=== PATIENT | male | born 2005 | race Two or more races ===

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

== ENCOUNTER 2024-04-17 22:04 | Emergency (ER) | payer OTHER ==
[~2024-04-17] VITALS: Ht 170.2 cm; Wt 100.0 kg
[2024-04-17] MEDS: ACETAMINOPHEN 500 MG TAB or CAP PO ONE (22:33)
[2024-04-17 23:21] VITALS: BP 107/60; PULSE 114; RESP 18; O2SAT 96
[2024-04-17] MEDS ORDERED: OSEL75CA5 PO (23:35)
[2024-04-17] MEDS ORDERED: PROM1SOL4 PO (23:35)
--- NOTE | 2024-04-17 23:35 | ED.PDOC ---
SOB-HPI Chief Complaint: Flu like Time Seen by MD: 22:13 Primary Care Provider: SAGE Garcia notes: Nurses Notes, Medications, Allergies Information Source: Patient Mode of Arrival: Ambulatory Family History Family History: Reviewed,noncontributory to illness, Unknown Social History Smoker: Non-Smoker Alcohol: Denies ETOH Use Drugs: Denies Drug Use Lives In: Home Constitutional: reports: fatigue, fever; denies: chills, diaphoresis, malaise, sweats, weakness, others EENTM: reports: nasal discharge, throat pain; denies: blurred vision, double vision, ear bleeding, ear discharge, ear drainage, ear pain, ear ringing, eye pain, eye redness, hearing loss, mouth pain, mouth swelling, nose bleeding, nose congestion, nose pain, photophobia, tearing, throat swelling, voice changes, others Respiratory: reports: cough; denies: hemoptysis, orthopnea, SOB at rest, shortness of breath, SOB with excertion, stridor, wheezing, others Cardiovascular: denies: chest pain, dizzy spells, diaphoresis, Dyspnea on exertion, edema, irregular heart beat, left arm pain, lightheadedness, palpitations, PND, syncope, others Gastrointestinal: denies: abdomen distended, abdominal pain, blood streaked bowels, constipated, diarrhea, dysphagia, difficulty swallowing, hematemesis, melena, nausea, poor appetite, poor fluid intake, rectal bleeding, rectal pain, vomiting, others Genitourinary: denies: burning, dysuria, flank pain, frequency, hematuria, incontinence, penile discharge, penile sore, pain, testicle pain, testicle swelling, urgency, others Neurological: denies: dizziness, fainting, headache, left sided numbness, left sided weakness, numbness, paresthesia, pre-existing deficit, right sided numbness, right sided weakness, seizure, speech problems, tingling, tremors, weakness, others Musculoskeletal: denies: back pain, gout, joint pain, joint swelling, muscle pain, muscle stiffness, neck pain, others Integumetry: denies: bruises, change in color, change in hair/nails, dryness, laceration, lesions, lumps, rash, wounds, others Allergic/Immunocompromised: denies: Difficulty Healing, Frequent Infections, Hives, Itching, others Hematologic/Lymphatic: denies: anemia, blood clots, easy bleeding, easy bruising, swollen glands, others Endocrine: denies: excessive hunger, excessive sweating, excessive thirst, excessive urination, flushing, intolerance to cold, intolerance to heat, unexplained weight gain, unexplained weight loss, others Psychiatric: denies: anxiety, bipolar disorder, depression, hopeless, panic disorder, schizophrenia, sleepless, suicidal, others Physical Exam General Appearance: No Apparent Distress, Normal HEENT: Pharyngeal Erythema, TMs Normal Neck: Full Range of Motion, Non-Tender Respiratory: Lungs Clear, No Respiratory Distress, Normal Breath Sounds Cardiovascular: No Edema, No JVD, No Murmur, No Gallop, Normal Peripheral Pulses, Regular Rate/Rhythm Breast Exam: Deferred Gastrointestinal: No Organomegaly, Non Tender, No Pulsatile Mass, Normal Bowel Sounds, Soft Genitalia: Deferred Pelvic: Deferred Rectal: Deferred Extremities: Normal capillary refill, Normal inspection, Normal range of motion, Non-tender, No pedal edema Musculoskeletal : Apperance: Normal Neurologic: Alert, heel builder machine II-XII nml as Tested, No Motor Deficits, Normal Affect, Normal Mood, No Sensory Deficits Cerebellar Function: Normal Reflexes: Normal Skin: Dry, Normal Color, Warm Lymphatic: No Adenopathy Was a procedure done? Was a procedure done?: No Differential Dx Differential Diagnosis: Pneumonia X-Ray, Labs, Meds, VS Vital Signs Date Time Temp Pulse Resp B/P (MAP) Pulse Ox O2 Delivery O2 Flow Rate FiO2 04/18/24 00:16 99.9 99.9 04/17/24 23:33 102.8 04/17/24 23:21 114 18 96 Room Air 04/17/24 23:21 102.8 114 18 107/60 (76) 96 102.8 04/17/24 22:33 103.0 04/17/24 22:20 103.0 122 18 108/72 (84) 98 Current Medications Medications (Trade) Dose Ordered Sig/Kalee Route Start Time Stop Time Status Last Admin Acetaminophen (Tylenol Tablet Or Capsule) 1,000 mg ONCE ONCE PO 04/17/24 22:30 04/17/24 22:31 DC 04/17/24 22:33 Ketorolac Tromethamine (Toradol Injection) 60 mg ONCE ONCE IM 04/17/24 23:30 04/17/24 23:31 DC 04/17/24 23:40 X-Ray, Labs, Meds, VS Comment This is a 18-year-old male presents to the ED chief complaint flu-like symptoms x2 days. She reports fevers, nasal congestion, cough, body aches, states has been taking [id number] medications with little relief. Denies vomiting, diarrhea, difficulty breathing, shortness of breath, or chest pain. Time of 1ST Reevaluation: 23:30 Reevaluation 1ST: Improved Patient Education/Counseling: Diagnosis, Treatment, Prognosis, Need For Follow Up Family Education/Counseling: No Family Present Departure 1 Departure Time of Disposition: 23:33 Impression: Primary Impression: Influenza Disposition: HOME / SELF CARE / HOMELESS Condition: Stable e-Prescriptions Promethazine-Dm (Promethazine Dm 6.25-15 mg/5Ml) 1 Felicitas Felicitas 5 ML PO QID PRN for 3 Days, #60 ML Prov: NANNETTE VITALE 04/17/24 Oseltamivir Phosphate (Tamiflu) 75 Mg Cap 1 CAP PO BID for 5 Days, #10 CAP Prov: NANNETTE VITALE 04/17/24 Discharged With: Self Critical Care Note Critical Care Time?: No Stability Stability form required: No Heart Score Heart Score: Heart Score Response (Comments) Value History N/A 0 EKG N/A 0 Age <45 0 Risk Factors N/A 0 Troponin N/A 0 Total 0 NANNETTE VITALE Apr 17, 2024 23:35
[2024-04-17] MEDS: KETOROLAC TROMETH 60MG/2ML VIAL IM ONE ×2 (23:39→23:40)
[2024-04-18 00:16] VITALS: TEMP 99.9
== END 2024-04-18 00:17 | disposition home or self-care (01) ==
LOC: ER 22:04
DX: J11.1 Influenza due to unidentified influenza virus with other respiratory manifestations (principal)
CPT/HCPCS: 96372; 99285; J1885